=== PATIENT | female | born 1975 | race Asian ===

== ENCOUNTER 2017-03-20 18:08 | Emergency (ER) | payer OTHER ==
[~2017-03-20] VITALS: Ht 157.5 cm; Wt 54.4 kg
--- NOTE | 2017-03-20 18:33 | PHYS DOC ---
General Chief Complaint: LACERATION/AVULSION Stated Complaint: FINGER LAC Time Seen by MD: 18:30 Source: patient Exam Limitations: no limitations Problems: History of Present Illness Initial Comments Patient is a 42-year-old female who comes to the ED complaining of finger laceration. Patient states immediately prior to arrival she was cutting cabbage at home with a kitchen knife, she states that she accidentally grazed across the dorsal aspect of her left second PIP joint. She has no difficulty with extension or flexion at both IP joints of the affected digit, no active bleeding wound edges are approximated she is asking if we can glue it. Her tetanus is up-to-date she follows at [facility] she denies numbness tingling weakness or radiating symptoms. . Onset: this evening Severity: mild Pain/Injury Location: left 2nd finger Method of Injury: incised Modifying Factors: worse with jarring, worse with movement Allergies: Coded Allergies: No Known Drug Allergies (Unverified , 07/11/15) Past Medical History Medical History: other (GERD) Surgical History: noncontributory Social History Smoker: non-smoker Alcohol: none Drugs: none Review of Systems Constitutional: denies chills, denies fever Respiratory: denies cough, denies shortness of breath Cardiovascular: denies chest pain, denies palpitations Gastrointestinal: denies nausea, denies vomiting Musculoskeletal: see HPI Skin: see HPI Psychiatric/Neurological: see HPI Physical Exam General Appearance: WD/WN, no apparent distress Cardiovascular/Respiratory: normal peripheral pulses, no respiratory distress Hand: laceration (very superficial linear clean laceration dorsal aspect left second PIP joint. Wound edges are approximated no foreign bodies no involvement of the extensor tendon complexes.) Skin: normal color, warm/dry Orders, Labs, Meds RN applied tissue adhesive metal finger splint and sterile dressing. The extremity was neurovascularly intact after splint placed. Departure Time of Disposition: 18:30 Disposition: 01 HOME, SELF-CARE Diagnosis: Left 2nd finger laceration Condition: GOOD Patient Instructions: Fingertip Laceration, Tissue Adhesive Wound Care Additional Instructions: Work excuse given. Please review the patient education handouts. Wear metal finger splint until cleared by your doctor. Keep covered with sterile dressing until healed. Keep dry for 48 hours. After 48 hours was twice daily with soap and warm water, blot dry. Allow wound to air dry one hour daily. Follow up with your doctor on [facility] in 3 days for recheck and further activity restriction modification. Return to ED with new or changing symptoms. DONALDO TRIPLETT DO Mar 20, 2017 18:33
[2017-03-20 18:37] VITALS: BP 126/81
== END 2017-03-20 19:03 | disposition home or self-care (01) ==
LOC: ER 18:08
DX: S61.211A Laceration without foreign body of left index finger without damage to nail, initial encounter (principal); K21.9 Gastro-esophageal reflux disease without esophagitis; W26.0XXA Contact with knife, initial encounter; Y93.89 Activity, other specified; Y99.8 Other external cause status; Y92.89 Other specified places as the place of occurrence of the external cause
CPT/HCPCS: 12001; 99283-25

== ENCOUNTER 2017-04-29 15:57 | Emergency (ER) | payer OTHER ==
[~2017-04-29] VITALS: Ht 160 cm; Wt 53.5 kg
--- NOTE | 2017-04-29 16:36 | PHYS DOC ---
Past History Past Medical History: No Pertinent History Past Surgical History: Appendectomy Additional Past Surgical Histo: hemorrhoidectomy Smoking: Non-smoker Alcohol Use: None Drug Use: None Adult General Chief Complaint Chief Complaint: FLU SYMPTOM HPI HPI Patient is a pleasant 42-year-old otherwise healthy female with a known exposure to influenza within the last 48 hours who presents with flulike symptoms began yesterday with subjective low-grade fevers, myalgias and generalized body aches and headache. Patient denies any significant shortness of breath, chest pain, abdominal pain, rash or joint swelling. She is taking Motrin for her symptoms without much improvement. She denies any travel outside the country or recent antibiotic use. She denies any abuse at home Review of Systems Review of Systems Constitutional:subjective fever or chills [] Eyes: Denies change in visual acuity, redness, or eye pain [] HENT: has nasal congestion without sore throat [] Respiratory: has aquatic physiotherapist cough or no shortness of breath [] Cardiovascular: No additional information not addressed in HPI [] GI: Denies abdominal pain, nausea, vomiting, bloody stools or diarrhea [] : Denies dysuria or hematuria [] Musculoskeletal: Denies back pain or has myalgias and diffuse pains with no swelling [] Integument: Denies rash or skin lesions [] Neurologic: Denies focal weakness or sensory changes, mild global coronel, not worst of life or sudden onset[] All other systems were reviewed and found to be within normal limits, except as documented in this note. Allergies Allergies Allergies Coded Allergies Type Severity Reaction Last Updated Verified No Known Drug Allergies 07/11/15 No Physical Exam Physical Exam Vital signs recorded on the chart within normal limits Constitutional: Well developed, well nourished, no acute distress, non-toxic appearance. [] HENT: Normocephalic, atraumatic, bilateral external ears normal, oropharynx moist, no oral exudates, nose normal. TMs are clear bilaterally [] Eyes: PERRLA, EOMI, conjunctiva normal, no discharge. [] Neck: Normal range of motion, no tenderness, supple, no stridor no Kernig's or Burzynski sign. [] Cardiovascular:Heart rate regular rhythm, no murmur [] Lungs & Thorax: Bilateral breath sounds clear to auscultation no wheezes rhonchi rales or crackles [] Abdomen: Bowel sounds normal, soft, no tenderness, no masses, no pulsatile masses. [] Skin: Warm, dry, no erythema, no rash. [] Back: No tendernes Extremities: No tenderness, no cyanosis, no clubbing, ROM intact, no edema. [] Neurologic: Alert and oriented X 3, normal motor function, normal sensory function, no focal deficits noted. [] Psychologic: Affect normal, judgement normal, mood normal. [] Current Patient Data Vital Signs Vital Signs Date Time Temp Pulse Resp B/P (MAP) Pulse Ox O2 Delivery O2 Flow Rate FiO2 04/29/17 16:06 98.4 78 18 95 Room Air EKG EKG [] Radiology/Procedures Radiology/Procedures [] Course & Med Decision Making Course & Med Decision Making Laboratory Tests Test 04/29/17 16:09 Influenza Type A (Rapid) Negative (NEGATIVE) Influenza Type B (Rapid) Negative (NEGATIVE) Pertinent Labs and Imaging studies reviewed. (See chart for details) []patient presents with flu like symptoms and a negative flu swab. She was exposed at home to a family member with influenza and similar symptoms. This patient will not benefit from antibiotics but may benefit from a neuromadinase inhibitor. discharge: I've spoken with the patient and/or caregivers. I've explained the patient's condition, diagnosis and treatment plan based on information available to me at this time. I've answered the patient's and/or caregivers questions and addressed any concerns. The patient and/or caregivers have a good understanding the patient's diagnosis, condition and treatment plan as can be expected at this point. Vital signs have been stabilized. The patient's condition is stable for discharge from the emergency department. The patient will pursue further outpatient evaluation with her primary care provider or other designated consulting physician as outlined in the discharge instructions. Patient and/or caregivers are agreeable to this plan of care and follow-up instructions have been explained in detail. The patient and/or caregivers have received these instructions in written format and expressed understanding of these discharge instructions. The patient and her caregivers are aware that if any significant change in condition or worsening of symptoms should prompt him to immediately return to this of the closest emergency department. If an emergent department is not readily available I would encourage him to call 911. Leno Disclaimer Leno Disclaimer This electronic medical record was generated, in whole or in part, using a voice recognition dictation system. Departure Departure: Impression: Primary Impression: Influenza Disposition: 01 HOME, SELF-CARE Condition: IMPROVED Referrals: REGLA JOHNSON (PCP) Patient Instructions: Influenza Facts, Influenza Tests, Influenza, Adult Additional Instructions: discharge: I've spoken with the patient and/or caregivers. I've explained the patient's condition, diagnosis and treatment plan based on information available to me at this time. I've answered the patient's and/or caregivers questions and addressed any concerns. The patient and/or caregivers have a good understanding the patient's diagnosis, condition and treatment plan as can be expected at this point. Vital signs have been stabilized. The patient's condition is stable for discharge from the emergency department. The patient will pursue further outpatient evaluation with her primary care provider or other designated consulting physician as outlined in the discharge instructions. Patient and/or caregivers are agreeable to this plan of care and follow-up instructions have been explained in detail. The patient and/or caregivers have received these instructions in written format and expressed understanding of these discharge instructions. The patient and her caregivers are aware that if any significant change in condition or worsening of symptoms should prompt him to immediately return to this of the closest emergency department. If an emergent department is not readily available I would encourage him to call 911. Scripts Oseltamivir Phosphate (TAMIFLU) 75 Mg Capsule 1 CAP PO BID, #10 CAP Prov: ALMA DELIA CORADO MD 04/29/17 Guaifenesin/Dextromethorphan (MUCINEX DM ER 1,200-60 MG TAB) 1 Each Tbmp.12hr 1 TAB PO BID, #20 TAB 1 Refill Prov: ALMA DELIA CORADO MD 04/29/17 Naproxen (NAPROSYN) 500 Mg Tablet 1 TAB PO BID, #20 TAB 1 Refill Prov: ALMA DELIA COARDO MD 04/29/17 ALMA DELIA CORADO MD Apr 29, 2017 16:36
[2017-04-29 16:47] LABS: INFLUENZA A PATIENT NEGATIVE (NEGATIVE); INFLUENZA B PATIENT NEGATIVE (NEGATIVE)
[2017-04-29 16:50] VITALS: BP 125/82
[2017-04-29] MEDS ORDERED: OSEL75CA PO (16:59)
[2017-04-29] MEDS ORDERED: GUAI1TBM10 PO (16:59)
[2017-04-29] MEDS ORDERED: NAPR-683 PO (16:59)
== END 2017-04-29 17:03 | disposition home or self-care (01) ==
LOC: ER 15:57
DX: J11.1 Influenza due to unidentified influenza virus with other respiratory manifestations (principal)
CPT/HCPCS: 87804; 99284

== ENCOUNTER → 2019-07-11 | Outpatient (CLI) | payer OTHER ==
[~2019-07-11] MED LIST: 0.9 % SODIUM CHLORIDE 10 ML VIAL ONE; GINK120T3 PO; GUAI1TBM10 PO; IOHEXOL 300 MG/ML 50 ML VIAL. ONE; LIDOCAINE 1% PF 30 ML VIAL. ONE; MAGN250T10 PO; MULT-245 PO; NAPR-683 PO; OSEL75CA PO; methylPREDNISolone ACETATE 80 MG/ML VIAL. ONE
[2019-07-11 15:51] VITALS: BP 129/85
== END ==
LOC: SURG 15:07
PROVIDERS: ATTEND Anesthesiology Pain Medicine
DX: M47.812 Spondylosis without myelopathy or radiculopathy, cervical region (principal); M79.18 Myalgia, other site; Z98.890 Other specified postprocedural states
CPT/HCPCS: 64490; 64491; 64492; J1040; J2001; Q9967

== ENCOUNTER 2019-12-12 08:34 | Emergency (ER) | payer OTHER ==
[2019-07-11 15:51] VITALS: BP 129/85
[~2019-12-12] VITALS: Ht 154.9 cm; Wt 55.0 kg
[~2019-12-12 08:34] MED LIST changes: -0.9 % SODIUM CHLORIDE 10 ML VIAL ONE; -IOHEXOL 300 MG/ML 50 ML VIAL. ONE; -LIDOCAINE 1% PF 30 ML VIAL. ONE; -methylPREDNISolone ACETATE 80 MG/ML VIAL. ONE
[2019-12-12] MEDS ORDERED: IV NORMAL SALINE 1,000ML 1,000 ML IV SCH (08:51)
--- NOTE | 2019-12-12 09:17 | PHYS DOC ---
Past History Past Medical History: No Pertinent History Past Surgical History: Appendectomy Additional Past Surgical Histo: hemorrhoidectomy Smoking: Non-smoker Alcohol Use: None Drug Use: None General Adult EDM: Chief Complaint: ABDOMINAL PAIN HPI: HPI: Patient is a 44 year old female who presents for evaluation of right sided lower abdominal discomfort. Onset over the past 24 hours. She states the pain is sha rp in nature. She does have history of an IUD in place. Patient just finished her menstrual cycle. Patient has already had an appendectomy. No complaints of nausea, vomiting or diarrhea. No complaints of fevers and chills. Patient is otherwise benign-appearing Review of Systems: Review of Systems: Constitutional: Denies fever or chills Eyes: Denies change in visual acuity HENT: Denies nasal congestion or sore throat Respiratory: Denies cough or shortness of breath Cardiovascular: Denies chest pain or edema GI: has right lower abdominal pain but no nausea, vomiting, bloody stools or diarrhea : Denies dysuria Musculoskeletal: Denies back pain or joint pain Integument: Denies rash Neurologic: Denies headache, focal weakness or sensory changes Endocrine: Denies polyuria or polydipsia Lymphatic: Denies swollen glands Psychiatric: Denies depression or anxiety Heart Score: Risk Factors: Risk Factors: DM, Current or recent (<one month) smoker, HTN, HLP, family history of CAD, obesity. Risk Scores: Score 0 - 3: 2.5% MACE over next 6 weeks - Discharge Home Score 4 - 6: 20.3% MACE over next 6 weeks - Admit for Clinical Observation Score 7 - 10: 72.7% MACE over next 6 weeks - Early Invasive Strategies Current Medications: Current Meds: Current Medications Medications (Trade) Dose Ordered Sig/Rosy Start Time Stop Time Status Last Admin Dose Admin Sodium Chloride 1,000 ml @ 1,000 mls/hr Q1H 12/12/19 08:51 12/12/19 09:50 12/12/19 09:07 1,000 MLS/HR Allergies: Allergies: Allergies Coded Allergies Type Severity Reaction Last Updated Verified No Known Drug Allergies 07/11/19 No Physical Exam: PE: Constitutional: Well developed, well nourished, mild acute distress, non-toxic appearance. [] HENT: Normocephalic, atraumatic, bilateral external ears normal, oropharynx moist, no oral exudates, nose normal. [] Eyes: PERRL, EOMI, conjunctiva normal, no discharge. [] Neck: Normal range of motion, no tenderness, supple, no stridor. [] Cardiovascular:Heart rate regular rhythm, no murmur [] Lungs & Thorax: Bilateral breath sounds clear to auscultation [] Abdomen: Bowel sounds normal, soft, right lower abd tenderness, no masses, no pulsatile masses. [] Skin: Warm, dry, no erythema, no rash. [] Back: No tenderness, no CVA tenderness. [] Extremities: No tenderness, no cyanosis, ROM intact, no edema. [] Neurologic: Alert and oriented X 3, normal motor function, normal sensory function, no focal deficits noted. [] Psychologic: Affect normal, judgement normal, mood normal. [] Current Patient Data: Labs: Laboratory Tests Test 12/12/19 09:07 12/12/19 09:47 White Blood Count 6.2 x10^3/uL Red Blood Count 4.25 x10^6/uL Hemoglobin 13.1 g/dL Hematocrit 39.1 % Mean Corpuscular Volume 92 fL Mean Corpuscular Hemoglobin 31 pg Mean Corpuscular Hemoglobin Concent 34 g/dL Red Cell Distribution Width 12.3 % Platelet Count 250 x10^3/uL Neutrophils (%) (Auto) 68 % Lymphocytes (%) (Auto) 22 % Monocytes (%) (Auto) 6 % Eosinophils (%) (Auto) 3 % Basophils (%) (Auto) 1 % Neutrophils # (Auto) 4.2 x10^3uL Lymphocytes # (Auto) 1.3 x10^3/uL Monocytes # (Auto) 0.4 x10^3/uL Eosinophils # (Auto) 0.2 x10^3/uL Basophils # (Auto) 0.1 x10^3/uL Sodium Level 140 mmol/L Potassium Level 3.8 mmol/L Chloride Level 105 mmol/L Carbon Dioxide Level 29 mmol/L Anion Gap 6 Blood Urea Nitrogen 13 mg/dL Creatinine 0.7 mg/dL Estimated GFR (Cockcroft-Gault) 90.5 BUN/Creatinine Ratio 19 Glucose Level 87 mg/dL Calcium Level 8.6 mg/dL Total Bilirubin 1.2 mg/dL Aspartate Amino Transf (AST/SGOT) 20 U/L Alanine Aminotransferase (ALT/SGPT) 21 U/L Alkaline Phosphatase 72 U/L Total Protein 6.7 g/dL Albumin 3.5 g/dL Albumin/Globulin Ratio 1.1 Serum Test, Qualitative Negative Urine Collection Type Unknown Urine Color Yellow Urine Clarity Hazy Urine pH 6.0 Urine Specific Menno 1.010 Urine Protein Neg Urine Glucose (UA) Neg mg/dL Urine Ketones (Stick) Neg mg/dL Urine Blood Small Urine Nitrite Neg Urine Bilirubin Neg Urine Urobilinogen Dipstick 0.2 mg/dL Urine Leukocyte Esterase Small Urine RBC 6-10 /HPF Urine WBC 11-20 /HPF Urine Squamous Epithelial Cells Many /LPF Urine Bacteria Few /HPF Urine Mucus Slight /LPF Current Medications Medications (Trade) Dose Ordered Sig/Rosy Route PRN Reason Start Time Stop Time Status Last Admin Dose Admin Sodium Chloride 1,000 ml @ 1,000 mls/hr Q1H IV 12/12/19 08:51 12/12/19 09:50 DC 12/12/19 09:07 EKG: EKG: [] Radiology/Procedures: Radiology/Procedures: [][place] [address] IMAGING REPORT Signed PATIENT: ASIM FREEDMAN RACCOUNT: [id number] : 1975 LOCATION: ER AGE: 44 SEX: F EXAM STATUS: REG ER ORD. PHYSICIAN: ULISES BRIAN DO REASON: right lower abd pain PROCEDURE: US PELVIS US PELVIS History: Right lower abdominal pain Comparison: None. Findings: Multiple transabdominal sonographic images of the pelvis are submitted. Uterus measured 9.8 x 6.4 x 4.5 cm. There was nonspecific prominent vein noted in the uterus. No significant free fluid is demonstrated. There is IUD in the endometrial cavity, associated shadowing. Right ovary measured 2.9 x 1.9 x 2.7 cm with normal low resistance vascularity. Hypoechoic lesion of the right ovary measures up to 2.3 cm greatest dimension. Reportedly patient's pain is in the area of the right ovary. Left ovary measured 2.9 x 2.1 x 1.3 cm with normal low resistance vascularity. Impression: 1. There is a small right ovarian cyst up to 2.3 cm, reportedly corresponding with area of patient's pain. There is no free fluid. 2. There is IUD in the endometrial cavity. Electronically signed by: Kelsie Romano MD (12/12/2019 10:58 AM) [id number] DICTATED AND SIGNED BY: KELSIE ROMANO MD DATE: 12/12/19 1058 CC: REGLA JOHNSON; ULISES BRIAN DO ~ Course & Med Decision Making: Course & Med Decision Making Pertinent Labs and Imaging studies reviewed. (See chart for details) 0955 patient refused pelvic exam but will self swab instead. Patient states she had a prior male doctor who did a pelvic exam and did not make her feel comfortable. We discussed the fact that failure to do an exam at this morning might delay the diagnosis of a pelvic infection. Patient does have an IUD in place. I cannot verify the presence of the string this morning. In compromise she will see her HUMAN RESOURCE STATISTICIAN right away and follow up. Ultrasound of her pelvis ordered to evaluate for possible pelvic abscess versus ovarian torsion 1110 stable, feeling better at this time. Patient will be treated for urinary tract infection and was given dose of IV Rocephin. Sonogram was stable and showed a right ovarian cyst. However there is no evidence of torsion. Patient will call and see her HUMAN RESOURCE STATISTICIAN right away and follow-up Leno Disclaimer: Leon Disclaimer: This electronic medical record was generated, in whole or in part, using a voice recognition dictation system. Departure Departure: Impression: Primary Impression: Acute UTI Additional Impressions: Right lower quadrant abdominal pain Right ovarian cyst IUD (intrauterine device) in place Disposition: HOME/RESIDENCE PRIOR TO ADM Condition: STABLE Referrals: REGLA JOHNSON (PCP) Patient Instructions: Levonorgestrel intrauterine device (IUD), Ovarian Cyst, Urinary Tract Infection Additional Instructions: Take medication as directed, call and see your doctor right away in follow-up. You have a urinary tract infection as well as a right ovarian cyst. See your HUMAN RESOURCE STATISTICIAN regarding your intrauterine device Scripts Tramadol Hcl (TRAMADOL HCL) 50 Mg Tablet 50 MG PO PRN Q6HRS PRN for PAIN for 7 Days, #14 TAB Prov: ULISES BRIAN DO 12/12/19 Cephalexin (CEPHALEXIN) 500 Mg Capsule 1 CAP PO QID for UTI, #40 CAP Prov: ULISES BRIAN DO 12/12/19 Justification of Admission: Justification of Admission: Justification of Admission Dx: N/A ULISES BRIAN DO Dec 12, 2019 09:17
[2019-12-12 09:22] LABS: BASO # 0.1 x10^3/uL (0.0-0.2); BASO % 1 % (0-3); EOS # 0.2 x10^3/uL (0.0-0.7); EOS % 3 % (0-3); HEMATOCRIT 39.1 % (36.0-47.0); HEMOGLOBIN 13.1 g/dL (12.0-15.5); LYMPH # 1.3 x10^3/uL (1.0-4.8); LYMPH % 22 % (24-48); MEAN CORPUSCULAR HEMOGLOBIN 31 pg (25-35); MEAN CORPUSCULAR HGB CONC 34 g/dL (31-37); MEAN CORPUSCULAR VOLUME 92 fL (79-100); MONO # 0.4 x10^3/uL (0.0-1.1); MONO % 6 % (0-9); NEUT # 4.2 x10^3uL (1.8-7.7); NEUT % 68 % (31-73); PLATELET COUNT 250 x10^3/uL (140-400); RED BLOOD COUNT 4.25 x10^6/uL (3.50-5.40); RED CELL DISTRIBUTION WIDTH 12.3 % (11.5-14.5); WHITE BLOOD COUNT 6.2 x10^3/uL (4.0-11.0)
[2019-12-12 09:30] LABS: CALCIUM 8.6 mg/dL (8.5-10.1); CREATININE 0.7 mg/dL (0.6-1.0); GFR 90.5; POTASSIUM 3.8 mmol/L (3.5-5.1)
[2019-12-12 09:35] LABS: PREG TEST PT QUAL NEGATIVE (NEG)
[2019-12-12 09:36] LABS: ALBUMIN 3.5 g/dL (3.4-5.0); ALBUMIN/GLOBULIN RATIO 1.1 (1.0-1.7); TOTAL BILIRUBIN 1.2 mg/dL (0.2-1.0); TOTAL PROTEIN 6.7 g/dL (6.4-8.2)
[2019-12-12 10:26] LABS: BILIRUBIN,URINE NEG (NEG); CLARITY,URINE HAZY; COLOR,URINE YELLOW; GLUCOSE,URINE NEG (NEG); NITRITE,URINE NEG (NEG); UROBILINOGEN,URINE 0.2 mg/dL (0.2 mg/dL)
[2019-12-12 10:27] LABS: BACTERIA,URINE FEW /HPF (0-FEW); SQUAMOUS EPITHELIAL CELL,UR MANY /LPF
--- NOTE | 2019-12-12 11:01 | RAD ---
US PELVIS History: Right lower abdominal pain Comparison: None. Findings: Multiple transabdominal sonographic images of the pelvis are submitted. Uterus measured 9.8 x 6.4 x 4.5 cm. There was nonspecific prominent vein noted in the uterus. No significant free fluid is demonstrated. There is IUD in the endometrial cavity, associated shadowing. Right ovary measured 2.9 x 1.9 x 2.7 cm with normal low resistance vascularity. Hypoechoic lesion of the right ovary measures up to 2.3 cm greatest dimension. Reportedly patient's pain is in the area of the right ovary. Left ovary measured 2.9 x 2.1 x 1.3 cm with normal low resistance vascularity. Impression: 1. There is a small right ovarian cyst up to 2.3 cm, reportedly corresponding with area of patient's pain. There is no free fluid. 2. There is IUD in the endometrial cavity. Electronically signed by: Robert Gutierrez MD (12/12/2019 10:58 AM) [id number]
[2019-12-12] MEDS ORDERED: CEPH500C PO (11:15)
[2019-12-12] MEDS ORDERED: TRAM50TA PO (11:15)
[2019-12-12] MEDS ORDERED: IV NORMAL SALINE 50ML 50 ML ONE (11:20)
[2019-12-12] MEDS ORDERED: cefTRIAXone SODIUM 1 GM VIAL ONE (11:21)
[2019-12-14 00:07] LABS: CHLAMYDIA PROBE Negative (Negative)
== END 2019-12-12 12:09 | disposition home or self-care (01) ==
LOC: ER 08:34
DX: N39.0 Urinary tract infection, site not specified (principal); N83.201 Unspecified ovarian cyst, right side; Z90.89 Acquired absence of other organs
CPT/HCPCS: 36415; 76856; 80053; 81001; 84703; 85025; 87491; 87591; 96361; 96365; 99284; J0696; J7030; Q0111; 99285-25